=== PATIENT | male | born 1965 | race Caucasian/White ===

== ENCOUNTER 2024-10-05 23:44 | Emergency (ER) | payer SELFPAY ==
[~2024-10-05] VITALS: Ht 172.7 cm; Wt 78.0 kg
[2024-10-05 23:46] VITALS: TEMP 98.7; O2SAT 100
[2024-10-06 01:10] VITALS: BP 145/86; PULSE 78; RESP 18; O2SAT 97
== END 2024-10-06 01:05 ==
LOC: ER 23:44
DX: S01.312A Laceration without foreign body of left ear, initial encounter (principal); X58.XXXA Exposure to other specified factors, initial encounter; Y93.89 Activity, other specified; Y92.89 Other specified places as the place of occurrence of the external cause; Y99.8 Other external cause status
CPT/HCPCS: 99283